=== PATIENT | female | born 1955 | race Caucasian/White ===

== ENCOUNTER 2018-04-08 13:02 | Day surgery (SDC) | payer MEDICARE, OTHER ==
[~2018-04-08 13:02] MED LIST: Lactated Ringers 1,000 ML IV SCH; Sodium Chloride 0.9% 10 ML Syringe FLUSH PRN; Sodium Chloride 0.9% 2.5 ML Syringe FLUSH PRN
[2018-04-08] MEDS ORDERED: Propofol 200 MG/20 ML SDV ONE (14:02)
[2018-04-08] MEDS ORDERED: fentaNYL 100 MCG/2 ML SDV ONE (14:02)
[2018-04-08] MEDS ORDERED: Midazolam 1 MG/ML 2 ML SDV ONE (14:02)
== END 2018-04-08 15:30 | disposition home or self-care (01) ==
LOC: MW.SDS 13:02
PROVIDERS: ATTEND Surgery
DX: Z12.11 Encounter for screening for malignant neoplasm of colon (principal); Z53.9 Procedure and treatment not carried out, unspecified reason
CPT/HCPCS: 00811; J2250; J2704; J3010; J7120

== ENCOUNTER 2018-04-09 06:55 | Day surgery (SDC) | payer MEDICARE, OTHER ==
--- NOTE | 2018-04-08 13:51 | PCM.PREANE ---
Preanesthetic Assessment - Anesthesia/Transfusion/Family Hx Anesthesia History: Prior Anesthesia Without Reaction Family History of Anesthesia Reaction: No Transfusion History: No Prior Transfusion(s) - Review of Systems General: No Symptoms Pulmonary: Other (LEO symptoms, no formal testing) Cardiovascular: No Symptoms Gastrointestinal: No Symptoms Neurological: No Symptoms Other: Reports: None - Physical Assessment NPO Status Date: 04/07/18 Height: 1.73 m Weight: 121.563 kg ASA Class: 2 Mental Status: Alert & Oriented x3 Airway Class: Mallampati = 1 Dentition: Reports: Normal Dentition ROM/Head Extension: Full Lungs: Clear to Auscultation, Normal Respiratory Effort Cardiovascular: Regular Rate, Regular Rhythm - Allergies Allergies/Adverse Reactions: Allergies Allergy/AdvReac Type Severity Reaction Status Date / Time No Known Allergies Allergy Verified 04/05/18 10:57 - Anesthesia Plan Pre-Op Medication Ordered: None - Acknowledgements Anesthesia Type Planned: MAC Pt an Appropriate Candidate for the Planned Anesthesia: Yes Alternatives and Risks of Anesthesia Discussed w Pt/Guardian: Yes Pt/Guardian Understands and Agrees with Anesthesia Plan: Yes Additional Comments: remote hx of C2 fracture at age 15. 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: Musculoskeletal History: Reports: Other (See Below) Other Musculoskeletal History: hx of dislocated left shoulder Neurological History: Reports: Other (See Below) Other Neuro History: hx of fx C2 Endocrine/Metabolic History: Reports: Obesity/BMI 30+ - Past Surgical History HEENT Surgical History: Reports: Tonsillectomy, Other (See Below) Other HEENT Surgeries/Procedures: hx of Left Tympanoplasty Female Surgical History: Reports: Tubal Ligation Musculoskeletal Surgical History: Reports: Arthroscopic Knee Other Musculoskeletal Surgeries/Procedures:: bilateral knee arthroscopys - SUBSTANCE USE Smoking Status *Q: Never Smoker Recreational Drug Use History: No - HOME MEDS Home Medications: Home Meds Hydrochlorothiazide 12.5 mg PO DAILY 04/05/18 [History] Metoprolol Succinate 50 mg PO DAILY 04/05/18 [History] Pravastatin Sodium [Pravachol] 40 mg PO BEDTIME 04/05/18 [History] Zolpidem Tartrate 5 - 10 mg PO BEDTIME PRN 04/05/18 [History] - CURRENT (IN HOUSE) MEDS Current Meds: Current Medications Lactated Ringer's (Ringers, Lactated) 1,000 mls @ 125 mls/hr IV ASDIRECTED JANN Last Admin: 04/08/18 13:29 Dose: 125 mls/hr Sodium Chloride (Saline Flush) 10 ml FLUSH ASDIRECTED PRN PRN Reason: Keep Vein Open Sodium Chloride (Saline Flush) 2.5 ml FLUSH ASDIRECTED PRN PRN Reason: Keep Vein Open Sodium Chloride (Saline Flush) 10 ml FLUSH ASDIRECTED PRN PRN Reason: Keep Vein Open Sodium Chloride (Saline Flush) 2.5 ml FLUSH ASDIRECTED PRN PRN Reason: Keep Vein Open
[2018-04-09] MEDS ORDERED: Lidocaine 2% 5 ML SDV ONE (07:03)
[2018-04-09] MEDS ORDERED: fentaNYL 100 MCG/2 ML SDV ONE (07:03)
[2018-04-09] MEDS ORDERED: Propofol 200 MG/20 ML SDV ONE (07:03)
[2018-04-09] MEDS ORDERED: Lactated Ringers 1,000 ML IV SCH (07:15)
--- NOTE | 2018-04-09 07:28 | PCM.SN ---
- Free Text/Narrative Note: Update of pre anesthetic evaluation. Pt cplonoscopy for yest pm cancelled, pt kept on CL overnight, No changes in health. Physical exam preformed again with no change.
[2018-04-09] MEDS ORDERED: Glycopyrrolate 0.2 MG/ML SDV ONE (08:35)
--- NOTE | 2018-04-09 09:11 | PCM.PRGIL ---
<Scotty Tello Z - Last Filed: 04/09/18 09:08> Lower GI Endoscopy Procedure Procedure:: Reports: Colonoscopy Intervention:: Polypectomy Procedure Comments:: Rectal Polyp excised and sent for biopsy, likely hyperplastic in nature. Cecum to Rectum time 8 min. Poor bowel prep resulting in sub-optimal visualization of colon. Performed By:: Ashley Molina Date of Service:: 04/09/18 Informed Consent Obtained?: Yes Indications:: Reports: Screening Rectodigital Exam:: Reports: Normal Exam, Normal Rectal Tone Sedation:: Reports: IV Depth Reached (Location):: Reports: Cecum Landmarks:: Reports: Cecum - Findings Rectal:: Reports: Normal Hemorrhoids:: Reports: None Condyloma:: Reports: None Colitis (Location):: Reports: None Polyps location Comment:: Rectal Polyp Mass (Location):: Reports: None Stenosis (Location):: Reports: None Complications:: Reports: None Cultures:: Reports: None <Ashley Molina - Last Filed: 04/09/18 09:18> Lower GI Endoscopy Procedure - Findings Polyps (cm):: 3 Polyp Type:: Reports: Pedunculated
--- NOTE | 2018-04-09 09:12 | PCM.POSTAN ---
POST ANESTHESIA ASSESSMENT - MENTAL STATUS Mental Status: Alert, Oriented - RESPIRATORY Respiratory Status: Respiratory Rate WNL, Airway Patent, O2 Saturation Stable - CARDIOVASCULAR CV Status: Pulse Rate WNL, Blood Pressure Stable - GASTROINTESTINAL GI Status: No Symptoms - POST OP HYDRATION Hydration Status: Adequate & Stable
--- NOTE | 2018-04-09 13:10 | OR ---
SURGEON: ASHLEY MOLINA MD DATE OF PROCEDURE: 04/09/2018 PREOPERATIVE DIAGNOSIS: Screening colonoscopy. POSTOPERATIVE DIAGNOSIS: Rectal polyp. PROCEDURE PERFORMED: Screening colonoscopy. ENDOSCOPIST: Dr. Ashley Molina. ANESTHESIA: MAC. INSTRUMENT USED: Olympus colonoscope. EXTENT OF EXAM: To the cecum. PREPARATION: Fair to poor. LIMITATIONS: None. INDICATION FOR EXAMINATION: The patient is a 63-year-old female, who presents for screening colonoscopy. We discussed the procedure, expected perioperative course, and risks including bleeding, infection, or damage to surrounding structures including perforation. The patient verbalized understanding and wishes to proceed. PROCEDURE IN DETAIL: The patient was brought to the endoscopy suite and placed in a left lateral decubitus position. A time-out was completed verifying the patient's name, age, date of , allergies, and procedure to be performed. Monitored anesthesia care was induced and continuous oxygen was provided via nasal cannula throughout the procedure. After adequate sedation was achieved, a digital rectal exam was performed. This exam was within normal limits. A well-lubricated colonoscope was inserted in the rectum and advanced under direct visualization to the level of the cecum. The cecum was identified by both visual and anatomic landmarks. A photograph was taken of the cecal cap as well as the scope retroflexed within the cecum. The scope was then fully withdrawn while examining the color, texture, anatomy, and integrity of the mucosa from the cecum to the anal canal. The patient's prep was fair to poor. There was a large amount of stool coating the rosales of the mucosa requiring a large amount of irrigation in order to clear it and see things adequately. There was a 2 to 3-mm pedunculated polyp within the rectum. This was removed using a cold biopsy forceps. The remainder of the scope was normal. The scope was brought into the rectum and retroflexed to allow visualization of the anal canal opening. This appeared normal and a photograph was taken. The scope was then straightened out and removed from the patient. The cecum to anus time was 8 minutes. The patient tolerated the procedure well and was taken to the PACU in stable condition. ENDOSCOPIC DIAGNOSES: Rectal polyp. RECOMMENDATIONS: Follow up in clinic in 2 weeks. JHOAN XIE /[id number]
== END 2018-04-09 09:40 | disposition home or self-care (01) ==
LOC: MW.SDS 06:55
PROVIDERS: ATTEND Surgery
DX: Z12.11 Encounter for screening for malignant neoplasm of colon (principal); D12.8 Benign neoplasm of rectum; I10 Essential (primary) hypertension; E66.9 Obesity, unspecified; Z68.41 Body mass index [BMI] 40.0-44.9, adult; E78.00 Pure hypercholesterolemia, unspecified; Z79.899 Other long term (current) drug therapy
CPT/HCPCS: 45380; J3010; J7120; J2704

== ENCOUNTER 2025-01-11 11:18 | Day surgery (SDC) | payer MEDICARE, OTHER ==
[2025-01-11] MEDS ORDERED: propofoL 500 MG/50 ML 50 ML ONE (11:20)
[2025-01-11] MEDS ORDERED: Lidocaine 2% 5 ML SDV ONE (11:20)
[2025-01-11] MEDS: Lactated Ringers 1,000 ML IV SCH (11:45)
== END 2025-01-11 14:10 | disposition home or self-care (01) ==
LOC: MW.SDS 11:18
PROVIDERS: ATTEND Surgery
DX: Z12.11 Encounter for screening for malignant neoplasm of colon (principal); D12.5 Benign neoplasm of sigmoid colon; K57.30 Diverticulosis of large intestine without perforation or abscess without bleeding; I10 Essential (primary) hypertension; E78.00 Pure hypercholesterolemia, unspecified; G47.33 Obstructive sleep apnea (adult) (pediatric); Z86.0100 Personal history of colon polyps, unspecified
CPT/HCPCS: 45385; 88305; J2003; J2704; J7120; 00811; 99100